=== PATIENT | female | born 1995 | race American Indian/Alaskan Native ===

== ENCOUNTER 2019-02-08 14:38 | Emergency (ER) | payer BC, OTHER ==
[~2019-02-08] VITALS: Ht 167.6 cm; Wt 72.7 kg
[2019-02-08 14:40] VITALS: BP 121/84
[2019-02-08] MEDS ORDERED: LIDOcaine 1% w/epiNEPHrine 1:200,000 30ml vial IM ONE (14:45)
[2019-02-08] MEDS ORDERED: acetaminophen 325mg tablet PO ONE (14:45)
[2019-02-08] MEDS ORDERED: ONDA4TAB6 PO (16:48)
== END 2019-02-08 17:04 | disposition home or self-care (01) ==
LOC: ER 14:39
DX: S06.0X0A Concussion without loss of consciousness, initial encounter (principal); S01.01XA Laceration without foreign body of scalp, initial encounter; Z79.899 Other long term (current) drug therapy; V43.52XA Car driver injured in collision with other type car in traffic accident, initial encounter; Y93.89 Activity, other specified; Y92.488 Other paved roadways as the place of occurrence of the external cause; Y99.8 Other external cause status
CPT/HCPCS: 12001; 70450; 99284; J3490

== ENCOUNTER 2019-05-07 00:50 | Emergency (ER) | payer MEDICAID, OTHER ==
[~2019-05-07] VITALS: Ht 170.2 cm; Wt 85.0 kg
[~2019-05-07 00:50] MED LIST: ONDA4TAB6 PO
[2019-05-07] MEDS ORDERED: phenazopyridine 100mg tablet PO ONE (01:15)
--- NOTE | 2019-05-07 01:25 | NUR ---
discussed pt's c/o of burning with urination with joelle nicole; new order for Pyridium received.
[2019-05-07 01:32] LABS: CLARITY,URINE TURBID (Clear); COLOR,URINE YELLOW (Yellow); GLUCOSE, URINE NEGATIVE (Neg); KETONES,URINE 15 mg/dl (Neg); LEUKOCYTE ESTERASE ,URINE LARGE (Neg); NITRITES, URINE POSITIVE (Neg); OCCULT BLOOD,URINE LARGE (Neg); PH,URINE 5.5 (4.8-8.0); PROTEIN,URINE 100 mg/dl (Neg); UROBILINOGEN,URINE 0.2 E.U/dL (0.2-1.0)
[2019-05-07 01:39] LABS: WBC,URINE TNTC /HPF (0-4)
[2019-05-07 01:40] LABS: BACTERIA,URINE 3+ /HPF (Neg); MUCUS STRANDS FEW /LPF (Neg); SQUAMOUS EPITHELIAL CELL,UR MODERATE /LPF (FEW)
[2019-05-07 01:42] LABS: UA COLLECTION TYPE VOIDED
[2019-05-07] MEDS ORDERED: CEPH-572 PO ×2 (03:49→03:57)
[2019-05-07] MEDS ORDERED: PHEN-716 PO ×2 (03:49→03:57)
[2019-05-07 04:05] VITALS: BP 110/77
== END 2019-05-07 04:35 | disposition home or self-care (01) ==
LOC: ER 00:51
DX: N39.0 Urinary tract infection, site not specified (principal); Z79.899 Other long term (current) drug therapy
CPT/HCPCS: 81001; 87077; 87088; 87186; 99283

== ENCOUNTER 2019-05-14 19:30 | Emergency (ER) | payer MEDICAID, OTHER ==
[~2019-05-14] VITALS: Ht 170.2 cm; Wt 68.0 kg
[~2019-05-14 19:30] MED LIST changes: +CEPH-572 PO; +PHEN-716 PO
[2019-05-14 19:42] VITALS: BP 124/83
== END 2019-05-14 21:21 | disposition home or self-care (01) ==
LOC: ER 19:32
DX: R07.89 Other chest pain (principal); Z79.2 Long term (current) use of antibiotics; Z79.899 Other long term (current) drug therapy; Z87.440 Personal history of urinary (tract) infections; X50.0XXA Overexertion from strenuous movement or load, initial encounter; Y93.89 Activity, other specified; Y92.89 Other specified places as the place of occurrence of the external cause; Y99.8 Other external cause status
CPT/HCPCS: 93005; 99283

== ENCOUNTER 2019-05-20 14:00 | Emergency (ER) | payer MEDICAID, OTHER ==
[~2019-05-20] VITALS: Ht 170.2 cm; Wt 68.2 kg
[~2019-05-20 14:00] MED LIST changes: -CEPH-572 PO
[2019-05-20 14:29] LABS: CLARITY,URINE SLIGHTLY CLOUDY (Clear); COLOR,URINE STRAW (Yellow); GLUCOSE, URINE NEGATIVE (Neg); KETONES,URINE NEGATIVE (Neg); LEUKOCYTE ESTERASE ,URINE NEGATIVE (Neg); NITRITES, URINE NEGATIVE (Neg); OCCULT BLOOD,URINE TRACE-LYSED (Neg); PH,URINE 5.5 (4.8-8.0); PROTEIN,URINE NEGATIVE (Neg); URINE HCG NEGATIVE (NEG); UROBILINOGEN,URINE 0.2 E.U/dL (0.2-1.0)
[2019-05-20 14:30] LABS: UA COLLECTION TYPE CLN CATCH MIDSTREAM
[2019-05-20 14:35] LABS: MUCUS STRANDS NONE SEEN /LPF (Neg); SQUAMOUS EPITHELIAL CELL,UR FEW /LPF (FEW)
[2019-05-20 14:36] LABS: BACTERIA,URINE NONE SEEN /HPF (Neg); RBC,URINE NONE SEEN /HPF (0-2); WBC,URINE 0-4 /HPF (0-4)
[2019-05-20 15:14] VITALS: BP 134/77
== END 2019-05-20 15:05 | disposition home or self-care (01) ==
LOC: ER 14:01
DX: R10.9 Unspecified abdominal pain (principal); R30.0 Dysuria; Z79.899 Other long term (current) drug therapy
CPT/HCPCS: 81001; 81025; 99283

== ENCOUNTER 2019-08-06 18:13 | Emergency (ER) | payer MEDICAID ==
[~2019-08-06] VITALS: Ht 170.2 cm; Wt 89.0 kg
[2019-08-06 18:24] VITALS: BP 136/76
== END 2019-08-06 21:34 | disposition home or self-care (01) ==
LOC: ER 18:14
DX: R22.31 Localized swelling, mass and lump, right upper limb (principal); Z79.899 Other long term (current) drug therapy
CPT/HCPCS: 99281

== ENCOUNTER 2020-04-18 01:44 | Emergency (ER) | payer MEDICAID ==
[~2020-04-18] VITALS: Ht 170.2 cm; Wt 72.7 kg
[2020-04-18] MEDS ORDERED: DOXYCYCLINE 100MG CAPSULE PO STA (02:54)
[2020-04-18] MEDS ORDERED: DOXY150T5 PO (02:56)
[2020-04-18 03:20] VITALS: BP 115/77
== END 2020-04-18 03:20 | disposition home or self-care (01) ==
LOC: ER 01:44
DX: L73.9 Follicular disorder, unspecified (principal); R39.15 Urgency of urination; R35.0 Frequency of micturition; Z79.899 Other long term (current) drug therapy
CPT/HCPCS: 99283

== ENCOUNTER 2022-09-29 09:20 | Emergency (ER) | payer MEDICAID ==
[~2022-09-29] VITALS: Ht 170.2 cm; Wt 84.0 kg
[2022-09-29 10:26] LABS: CLARITY,URINE CLEAR (Clear); COLOR,URINE YELLOW (Yellow); GLUCOSE, URINE NEGATIVE (Neg); KETONES,URINE NEGATIVE (Neg); LEUKOCYTE ESTERASE ,URINE NEGATIVE (Neg); NITRITES, URINE NEGATIVE (Neg); OCCULT BLOOD,URINE TRACE-INTACT (Neg); PROTEIN,URINE NEGATIVE (Neg); UA COLLECTION TYPE CLN CATCH MIDSTREAM; UROBILINOGEN,URINE 0.2 E.U/dL (0.2-1.0)
[2022-09-29 10:29] LABS: URINE HCG POSITIVE (NEG)
[2022-09-29 10:33] LABS: SQUAMOUS EPITHELIAL CELL,UR FEW /LPF (FEW)
[2022-09-29 10:35] LABS: BACTERIA,URINE FEW /HPF (Neg); RBC,URINE 0-2 /HPF (0-2); WBC,URINE NONE SEEN /HPF (0-4)
[2022-09-29 11:00] VITALS: BP 110/74
== END 2022-09-29 11:02 | disposition home or self-care (01) ==
LOC: ER 09:20
DX: O26.891 Other specified pregnancy related conditions, first trimester (principal); R30.9 Painful micturition, unspecified; R11.0 Nausea; Z3A.01 Less than 8 weeks gestation of pregnancy; Z87.440 Personal history of urinary (tract) infections; Z79.899 Other long term (current) drug therapy
CPT/HCPCS: 81001; 81025; 99283